=== PATIENT | female | born 1980 | race Caucasian/White ===

== ENCOUNTER 2022-01-30 09:42 | Outpatient (CLI) | payer OTHER, SELFPAY ==
--- NOTE | ~2022-01-30 | US_ITS ---
EXAMINATION: US abdomen limited DATE: 01/30/2022 10:40 INDICATION: Iron deficiency anemia due to chronic blood loss. TECHNIQUE: Multiple grayscale and Doppler ultrasound images of the abdomen were obtained. COMPARISON: None FINDINGS: The visualized portions of the head, body, and tail of the pancreas are normal. The liver i s normal without focal lesion. There is normal flow in main portal vein. The gallbladder is normal in size. No gallstones or gallbladder wall thickening. There was no sonographic Yang sign. The common duct is normal and measures 3 mm. IMPRESSION: 1. Normal right upper quadrant ultrasound. Reviewed, dictated and finalized at location B.
== END 2022-01-30 09:43 | disposition home or self-care (01) ==
PROVIDERS: PCP Emergency Medicine
DX: D50.0 Iron deficiency anemia secondary to blood loss (chronic) (principal); R10.11 Right upper quadrant pain
CPT/HCPCS: 76705

== ENCOUNTER 2023-07-27 09:23 | Emergency (ER) | payer OTHER, SELFPAY ==
[2023-07-27 09:31] VITALS: BP 111/60; PULSE 101; RESP 16; TEMP 37.2; O2SAT 100
--- NOTE | 2023-07-27 10:02 | ED.SKABFB ---
HPI - Skin/Abscess/Foreign Bdy General Chief complaint: Skin/Abscess/Foreign Body Stated complaint: Shingles Time Seen by Provider: 07/27/23 09:48 Source: patient, family (mother) and RN notes reviewed Mode of arrival: ambulatory Limitations: no limitations History of Present Illness HPI narrative: Patient presents today complaining of 3 blisters to her left lower abdomen/groin area that appeared 4 days ago. Patient was subsequently seen for this by her OBGYN who cultured the area, but believes it is likely shingles as patient is now experiencing pain in her buttocks as well. States the culture will come back on Saturday and the OB GYNs office will contact her with the results. Patient is currently pain-free. She comes in today to make sure there is not anything additional that she should be doing for the area while waiting for the culture results. Related Data Home Medications Medication Instructions Recorded Confirmed No Home Medications 07/27/23 07/27/23 Allergies Allergy/AdvReac Type Severity Reaction Status Date / Time No Known Allergies Allergy Verified 07/27/23 09:58 Review of Systems Review of Systems: CONSTITUTIONAL: Denies body aches, fever, chills, or sweats. EYES: Denies visual changes, redness, or discharge. ENT: Denies rhinorrhea, congestion, sore throat, or otalgia. CARDIOVASCULAR: Denies chest pain, palpitations, or edema. RESPIRATORY: Denies cough or dyspnea. GASTROINTESTINAL: Denies abdominal pain, nausea, vomiting, or diarrhea. GENITOURINARY: Denies dysuria or hematuria. SKIN: Denies rash, itching, or wounds. + blisters to lower abdomen MUSCULOSKELETAL: Denies back pain, joint pain, or myalgia. NEUROLOGIC: Denies headache, numbness, tingling, or weakness. PSYCH: Denies depression or anxiety. PMFSH Comments At time of signature, I have reviewed and agree with nursing past medical, surgical, social and family history unless otherwise noted. Please see nursing chart for further information. There is no relevant family history pertinent to the presenting complaint Exam Narrative: GENERAL: Well-appearing, well-nourished, and in no acute distress. HEAD: Normocephalic, atraumatic. EYES: EOMI. No redness or drainage. Conjunctivae normal. ENT: Mucous membranes pink and moist. NECK: Normal AROM. CHEST: No respiratory distress. EXTREMITIES: Normal range of motion. No edema. SKIN: Warm, dry, no rash. Capillary refill normal. Normal skin turgor. Three tiny vesicles to the left groin area with adjacent tender lymph node. No induration or drainage noted. NEURO: No focal deficits. Alert and oriented x3. Gait steady. PSYCH: Normal affect. No signs of depression or anxiety. Course Course Level of Care: Express Care Visit Vital Signs Vital signs: Vital Signs Temperature 98.9 F 07/27/23 09:31 Pulse Rate 101 H 07/27/23 09:31 Respiratory Rate 16 07/27/23 09:31 Blood Pressure 111/60 07/27/23 09:31 Pulse Oximetry 100 07/27/23 09:31 Temperature 98.9 F 07/27/23 09:31 Pulse Rate 101 H 07/27/23 09:31 Respiratory Rate 16 07/27/23 09:31 Blood Pressure 111/60 07/27/23 09:31 Pulse Oximetry 100 07/27/23 09:31 Reviewed MDM - Skin/Abscess/Foreign Bdy MDM Narrative Medical decision making narrative: Instructed patient to wait for her OB GYNs call regarding the results of the culture. At this time I advised her to leave the area alone as it did not look infected or in need of oral antibiotics. Agrees with plan. Anticipatory guidance given. Differential Diagnosis Differential diagnosis: Likely abscess of skin or subcutaneous tissue, herpes zoster and cellulitis Critical Care Time Critical Care Time Critical Care Time: No Discharge Plan Discharge Clinical Impression: Rash Patient Disposition: Home, Self-Care Condition: Stable Additional Instructions: Please wait for the results of your doctor's wound culture. She will treat you appropri
== END 2023-07-27 10:05 | disposition home or self-care (01) ==
PROVIDERS: Emergency Provider Nurse Practitioner; PCP Emergency Medicine
DX: R21 Rash and other nonspecific skin eruption (principal)
CPT/HCPCS: 99211; G0463

== ENCOUNTER 2024-02-27 17:15 | Emergency (ER) | payer OTHER, SELFPAY ==
[2024-02-27 17:16] VITALS: BP 115/77; PULSE 76; RESP 16; TEMP 36.6; O2SAT 100
--- NOTE | 2024-02-27 18:10 | ECG_ITS ---
Test Date: 2024-02-27 18:20:02 Measurements Intervals [place] Rate: 67 P: 75 SC: 146 QRS: 51 QRSD: 90 T: 43 QT: 354 QTc: 374 Interpretive Statements SINUS RHYTHM POSSIBLE LEFT ATRIAL ENLARGEMENT INCOMPLETE RIGHT BUNDLE BRANCH BLOCK BASELINE ARTIFACT- I, II, III, AVR, AVL, AVF BORDERLINE ECG No previous ECG available for comparison Electronically Signed On 02-27-2024 20:41:21 CDT by Hector Hernández D.O.
--- NOTE | 2024-02-27 18:17 | ED.GENADULT ---
HPI - General Adult General Chief complaint: Unspecified Stated complaint: shocked self on stove Time Seen by Provider: 02/27/24 18:09 History of Present Illness HPI narrative: 43-year-old female presenting emergency department for evaluation after shocking herself on a stove plug. Patient was plugging in a 3 pronged outlet for her oven when she received a shock lasting a second or 2. patient denies any tetany or being stuck to the logical sores. Patient states she had a shock 0 upper arm. Patient denies any loss of consciousness. Patient states this occurred by 30 minutes prior to arrival. Related Data Home Medications Medication Instructions Recorded Confirmed No Home Medications 07/27/23 07/27/23 Allergies Allergy/AdvReac Type Severity Reaction Status Date / Time No Known Allergies Allergy Verified 02/27/24 17:56 Review of Systems Review of Systems: All systems reviewed & are unremarkable except as noted in HPI and below Exam Narrative: APPEARANCE: Well appearing, no pain, no distress, well-nourished. HEAD: normocephalic, atraumatic. EYES: PERRLA/EOMI, conjunctivae clear. NOSE: Normal no drainage EARS:TMS clear with good light reflex. THROAT: Pharynx clear, no exudate. NECK: Supple. No adenopathy, no masses. RESPIRATORY: Airway patent, respirations nonlabored. Clear to auscultation bilaterally, no rales, rhonchi, wheezing. CARDIOVASCULAR: Regular rate and rhythm without murmurs rubs or gallops. ABDOMINAL: Soft, nontender, nondistended, normal bowel sounds MUSCULOSKELETAL: Moves all extremities. Strength/ROM intact, No edema, No calf tenderness. NEURO: Alert. Cranial nerves II through XII intact. Grossly intact SKIN: Warm, dry. Normal Color Course Vital Signs Vital signs: Vital Signs Temperature 97.9 F 02/27/24 17:16 Pulse Rate 76 02/27/24 17:16 Respiratory Rate 16 02/27/24 17:16 Blood Pressure 115/77 02/27/24 17:16 Pulse Oximetry 100 02/27/24 17:16 Oxygen Delivery Room Air 02/27/24 17:16 Temperature 98.7 F 02/27/24 19:01 Pulse Rate 77 02/27/24 19:01 Respiratory Rate 16 02/27/24 19:01 Blood Pressure 103/62 02/27/24 19:01 Pulse Oximetry 100 02/27/24 19:01 Oxygen Delivery Room Air 02/27/24 17:16 Medical Decision Making MDM Narrative Medical decision making narrative: 43-year-old female presented emergency department for evaluation after a brief electric shock from the stove flutter. Patient denies any chest pain shortness breath. EKG showed no acute abnormality. Patient was discharged home with instructions for close outpatient follow-up. Vital Signs Vital Signs: Vital Signs Temperature 97.9 F 02/27/24 17:16 Pulse Rate 76 02/27/24 17:16 Respiratory Rate 16 02/27/24 17:16 Blood Pressure 115/77 02/27/24 17:16 Pulse Oximetry 100 02/27/24 17:16 Oxygen Delivery Room Air 02/27/24 17:16 Temperature 98.7 F 02/27/24 19:01 Pulse Rate 77 02/27/24 19:01 Respiratory Rate 16 02/27/24 19:01 Blood Pressure 103/62 02/27/24 19:01 Pulse Oximetry 100 02/27/24 19:01 Oxygen Delivery Room Air 02/27/24 17:16 Discharge Plan Discharge Clinical Impression: Electric shock Patient Disposition: Home, Self-Care Condition: Stable Instructions: Antibiotic Form, Electrical Diaz in Adults (ED) Additional Instructions: Have close follow-up with your primary care physician. Prescriptions: No Action No Home Medications Follow-up/Referrals: Al Valdes MD [Primary Care Provider] -
[2024-02-27 19:01] VITALS: BP 103/62; PULSE 77; RESP 16; TEMP 37.1; O2SAT 100
== END 2024-02-27 19:03 | disposition home or self-care (01) ==
PROVIDERS: Emergency Provider Emergency Medicine; PCP Emergency Medicine
DX: T75.4XXA Electrocution, initial encounter (principal); W86.8XXA Exposure to other electric current, initial encounter; I45.10 Unspecified right bundle-branch block; R94.31 Abnormal electrocardiogram [ECG] [EKG]
CPT/HCPCS: 93005; 99283

== ENCOUNTER 2025-08-10 03:08 | Emergency (ER) | payer OTHER, SELFPAY ==
--- NOTE | ~2025-08-10 | CT_ITS ---
EXAMINATION: CTA chest PE abdomen pel DATE: 08/10/2025 05:16 INDICATION: Left-sided pleuritic chest pain. Left abdominal pain. TECHNIQUE: Computed tomography angiography (CTA) of the chest was performed with 100 mL Omnipaque-350 intravenous contrast timed to evaluate the pulmonary arteries. Coronal maximum intensity projection 3D-reconstructions were created by the technologist. Computed tomography (CT) of the abdomen and pelvis was performed with intravenous contrast. Automated exposure control and iterative reconstruction technique were employed. The dose-length product was 300.68 mGy-cm. COMPARISON: None. FINDINGS: CTA chest: There is mild scarring at the lung apices. There is mild dependent atelectasis bilaterally. No pleural effusion. The heart size is normal. No pericardial effusion. There is no pulmonary embolus. There is mild thoracic spondylosis. CT abdomen and pelvis: The liver, gallbladder, spleen, pancreas, adrenal glands, and kidneys are normal. There are multiple fibroids in the uterus measuring up to 5.1 cm. The appendix is not visualized. There are no pathologically enlarged lymph nodes. There is no free intraperitoneal fluid. There is mild lumbar spondylosis. IMPRESSION: 1. No pulmonary embolus. 2. Uterine fibroids. Reviewed, dictated and finalized at location E. OR LPN
[2025-08-10 03:23] VITALS: BP 106/76; PULSE 76; RESP 15; TEMP 36.7; O2SAT 100
--- NOTE | 2025-08-10 03:26 | ECG_ITS ---
Test Date: 2025-08-10 04:08:16 Measurements Intervals [place] Rate: 77 P: 71 IN: 136 QRS: 56 QRSD: 97 T: 38 QT: 342 QTc: 388 Interpretive Statements SINUS RHYTHM MINIMAL Q WAVES- DIFFUSE LEADS BASELINE ARTIFACT- II, III, AVR, AVL, AVF, V1-V6 BORDERLINE ECG Compared to ECG 02/27/2024 18:20:02 Incomplete right bundle-branch block no longer present Electronically Signed On 08-10-2025 07:12:08 SUPPLY COORDINATOR by Hector Hernández D.O.
--- OUTSIDE RECORDS SUMMARY | 2025-08-10 03:38 | XMS_ITS | Clinical Summary ---
Author Organization [facility] Address [address], [facility] [address] [place] [address] Phone Care Team Providers Care Fish Machine Feeder Name Role Phone Al Valdes Primary Care Provider [phone] Pancho Richards MD Unavailable [phone] Allergies No known active allergies Medications Multiple Vitamins-Minera ls (MULTIVITAL) Chewable Tablet Take by mouth. Active tranexamic Acid (LYSTEDA) 650 MG Tablet Take by mouth. Only with heavy menstrual cycles 8 Active Cholecalciferol (Vitamin D3) 2000 UNIT Capsule Take 1 Capsule by mouth daily. Active tretinoin (RETIN-A) 0.05 % Cream Apply. 12/25/19 26 Active Active Problems Problem Noted Date Diagnosed Date Iron deficiency anemia due to sideropenic dyspha robin 05/02/2018 Encounters Date Type Department Care Team Description 07/12/2025 2:00 PM MOLD CUTTING MACHINE OPERATOR Clinical Support [facility] [address] [id number] Iron deficiency anemia due to sideropenic dysphagia (Primary Dx) 07/12/2025 Travel 07/05/2025 2:00 PM MOLD CUTTING MACHINE OPERATOR Clinical Support [facility] [address] [phone] [facility] deficiency anemia due to sideropenic dysphagia (Primary Dx) 07/05/2025 Travel 06/28/2025 2:00 PM MOLD CUTTING MACHINE OPERATOR Clinical Support [facility] [address] [address] Nurse, [facility] [place] Iron deficiency anemia due to sideropenic dysphagia (Primary Dx) 06/25/2025 2:00 PM MOLD CUTTING MACHINE OPERATOR Clinical Support [facility] [address] [phone] Nurse, [facility] [place] Iron deficiency anemia due to sideropenic dysphagia (Primary Dx) 06/25/2025 Travel 06/21/2025 2:00 PM MOLD CUTTING MACHINE OPERATOR Clinical Support [facility] [address] [phone] Nurse, [facility] [place] Iron deficiency anemia due to sideropenic dysphagia (Primary Dx) 06/21/2025 Travel 06/09/2025 Results Follow-Up [facility] [address] [phone] Malinda Wolff, RN IRON AND TIBC [id number] [place], FERRITIN [id number] [place], CBC WITH AUTO DIFF [place] 06/08/2025 Telephone [facility] [address] [phone] Pancho Richards MD [facility] / Lab results 06/07/2025 1:00 PM CDT Lab [facility] [address] [phone] Lab, [facility] [place] Iron deficiency anemia due to sideropenic dysphagia 06/07/2025 Travel 06/03/2025 Telephone [facility] [address] [phone] Savannah Lazcano, RUNNING SPECIALIST, COUNTING MACHINE OPERATOR [facility] / Labs 05/12/2025 Telephone [facility] [address] [phone] Pancho Richards MD from Last 3 Months Immunizations Immunization Administration Dates Next Due Covid-19, Mrna, Lnp-s, Pf, 3 0 Mcg/0.3 Ml Dose (Nexidia) 06/23/2021,11/25/2020,10/31/2020 Family History Relation Name Status Comments Father Alive Mother Alive Social History Tobacco Use Types Packs/Day Years Used Date Smoking Tobacco: Never Smokeless Tobacco: Never Tobacco Cessation:Counseling Given: Not Answered Alcohol Use Standard Drinks/Week Comments No 0 (1 standard drink = 0.6 oz pur e alcohol) PHQ-2 Answer Date Recorded Total Score - Questions 1-9 0 02/2022 Sexually Active Control Partners Comments Yes Male Condom Comments Unknown Sex and Gender Information Value Date Recorded Sex Assigned at Not on file Legal Sex Female 8:44 AM CDT Gender Identity Not on file Sexual Orientation Not on file Last Filed Vital Signs Vital Sign Reading Time Taken Comments Blood Pressure 92/64 01/25/2025 10:45 AM CDT Pulse 79 01/25/2025 10:45 AM CDT Temperature 36.9 C (98.4 F) 01/25/2025 10:45 AM CDT Respiratory Rate 18 01/25/2025 10:45 AM CDT Oxygen Saturation 99% 01/25/2025 10:45 AM CDT Inhaled Oxygen Concentration - - Weight 39.5 kg (87 lb 1.6 oz) 01/25/2025 10:45 A M CDT Height 154.9 cm (5' 1) 01/25/2025 10:45 AM CDT Body Mass Index 16.46 01/25/2025 10:45 AM CDT Plan of Treatment Upcoming Encounters Date Type Department Care Team (Late st Contact Info) Description 09/06/2025 1:15 PM MOLD CUTTING MACHINE OPERATOR Lab [facility] [address] [phone] Lab, [facility] 09/06/2025 1:30 PM MOLD CUTTING MACHINE OPERATOR Office Visit [facility] [address] [phone] Pancho Richards MD [address] [place] [phone] Health Maintenance Due Date Last Done Comments Hepatitis C Virus (HCV) Screening 1980 TdaP Immunization 1980 Hepatitis B Immunization (1 of 3 - 19+ 3-dose series) 1999 HPV/Cotest 2010 Influenza Immunization (#1) 2025 SARS-COV-2 Immunization ( season) 2025 06/23/2021, 11/25/2020, 10/31/2020 Cologuard 2025 Colonoscopy 2025 Colorectal Cancer Screening 2025 Immunochemical Fecal Occult Blood 2025 Mammogram 02/03/2026 02/03/2025, 01/17, 01/31/2023, Additional history exists Cervical Cancer Screening (CCS) 02/10/2027 Pap Smear 02/10/2027 02/11/2024, 07/10/2021 Respiratory Syncytial Virus (RSV) Immunization (Adult) (1 - 1-dose 75+ series) 2055 Discussion re Starting/Frequency of Mammograms Completed 02/03/2025, 02/03/2024, 01/31/2023, Additional history exists Human Papillomavirus (HPV) Immunization (No Doses Required) Completed Meningococcal Immunization (ACWY) Aged Out No longer eligible based on patient's age to complete this topic Pneumococcal Immunization Combined Aged Out No longer eligible based on patient's age to complete this topic Rotavirus Immunization Aged Out No lo nger eligible based on patient's age to complete this topic Procedures Procedure Name Priority Date/Time Associated Diagnosis Comments CBC WITH AUTO DIFF [place] Routine 06/07/2025 1:06 PM CDT FERRITIN [id number] [place] Routine 06/07/2025 1: 06 PM CDT IRON AND TIBC [id number] [place] Routine 06/07/2025 1:06 PM CDT from Last 3 Months Results * (ABNORMAL) IRON AND TIBC [id number] [place] (06/07/2025 1:06 PM CDT) Iron Bind.Cap.(TIBC) 377 250 - 450 UG/DL [facility] UIBC 351 131 - 425 UG/DL [facility] Iron, Serum 26(L) 27 - 159 UG/DL [facility] Iron Saturation 7(LL) 15 - 55 % [facility] 06/07/2025 1:06 PM CDT Merged With [facility] - 06/08/2025 7:08 AM CDT TESTING PERFORMED AT: [] [facility], [address] [place] [address], [phone], PHONE: [phone], SYSTEM TECHNOLOGIST: FARHAT STAHL, PHD us Pancho Richards MD LAB SEND OUTS Final Resul t Performing Organization Address [facility] Co de Phone Number [facility] [place] [address], [place] [phone] * (ABNORMAL) FERRITIN [id number] [place] (06/07/2025 1:06 PM CDT) Ferritin, Serum 5(L) 15 - 150 NG/ML [facility] 06/07/2025 1:06 PM CDT Merged With [facility] - 06/08/2025 7:08 AM CDT TESTING PERFORMED AT: [] [facility], [address] [place] [address], [phone], PHONE: [phone], SYSTEM TECHNOLOGIST: FARHAT STAHL, PHD us Pancho Richards MD LAB SEND OUTS Final Resul t Performing Organization Address [facility] Co de Phone Number [facility] [place] [address], [place] [phone] * (ABNORMAL) CBC WITH AUTO DIFF [place] (06/07/2025 1:06 PM CDT) WBC 5.5 4.0 - 10.0 10*3/uL [facility] HGB 10.6(L) 11.2 - 15.7 g/dL [facility] HCT 35.1 34.1 - 44.9 % [facility] PLT 231 163 - 369 10*3/uL [facility] MPV 9.7 9.4 - 12.4 fL [facility] RBC 4.73 3.93 - 5.22 10*6/uL [facility] MCV 74(L) 79 - 95 fL [facility] MCH 22.4(L) 25.6 - 32.2 pg [facility] MCHC 30.2(L) 32.2 - 36.5 g/dL [facility] RDW 14.2 11.6 - 14.4 % [facility] Neutrophils % 63.4 36.0 - 66.0 % [facility] Lymphocytes % 24.3 19.0 - 40.0 % [facility] Monocytes % 6.0 4.1 - 12.1 % [facility] Eosinophils % 5.6(H) 0.0 - 3.5 % [facility] Basophils % 0.5 0.0 - 1.0 % [facility] Absolute Neutrophils 3.5 1.4 - 6.6 10*3/uL [facility] Absolute Lymphocytes 1.3 0.8 - 4.0 10*3/uL [facility] Absolute Monocytes 0.3 0.2 - 1.2 10*3/uL [facility] Absolute Eosinophils 0.3 0.0 - 0.4 10*3/uL [facility] Absolute Basophils 0.0 0.0 - 0.1 10*3/uL [facility] 06/07/2025 1:06 PM CDT us Pancho Richards MD LAB SEND OUTS Final Resul t [facility] [place] [address], from Last 3 Months Insurance MEDICAID [facility] PLAN Care Teams Fish Machine Feeder Relationship Specialty Start Date End Date Al Valdes [address] [facility] [place] [address] PCP - General Family Medicine 04/17/18 Pancho Richards MD [address] [place] [phone] Consulting Physician Hematology and Oncology 02/14/21
--- OUTSIDE RECORDS SUMMARY | 2025-08-10 03:38 | XMS_ITS | Encounter Summary ---
Author Organization [facility] Address [address] [place] [address] Care Team Providers Care Donor Specialist Name Role Phone Al Valdes MD Primary Care Provider Reason for Visit * Reason Onset Date Comments Question 02/04/2024 Results 02/04/2024 Encounter Details Date Type Department Care Team (Late st Contact Info) Description 02/04/2024 Telephone [facility] - RATE SUPERVISOR [address] [facility] [address] [place] [address] Yuli Sweeney MD [address] [place] [address] Question; Results Social History Tobacco Use Types Packs/Day Years Used Date Smoking Tobacco: Never Smokeless Tobacco: Never Alcohol Use Standard Drinks/Week Comments No 0 (1 standard drink = 0.6 oz pur e alcohol) PHQ-2 Answer Date Recorded PHQ2 TOTAL SCORE 0 02/28/2023 Comments No Sex and Gender Information Value Date Recorded Sex Assigned at Not on file Legal Sex Female 12:42 PM CDT Gender Identity Not on file Sexual Orientation Not on file documented as of this encounter Functional Status * Is person deaf or have serious hearing difficulty? Answer Date of Assessment Author No 02/09/2022 1:32 PM ELIZABETHT Roger Harper RN * Is person blind or have serious difficulty seeing? Answer Date of Assessment Author No 02/09/2022 1:32 PM ELIZABETHT Roger Harper RN * Does person have serious difficulty walking/climbing stairs? Answer Date of Assessment Author No 02/09/2022 1:32 PM CDT Roger Harper RN * Does person have difficulty dressing/bathing? Answer Date of Assessment Author No 02/09/2022 1:32 PM CDT Roegr Harper RN * Does person have difficulty doing errands alone? Answer Date of Assessment Author No 02/09/2022 1:32 PM CDT Roger Harper RN documented as of this encounter Mental Status * Does person have difficulty concentrating/remembering/making decisions? Answer Entry Date Author No 02/09/2022 1:32 PM CDT Roger Harper RN documented in this encounter Miscellaneous Notes * Telephone Encounter - Yuli Sweeney MD - 02/04/2024 3:54 PM CDT Agree with proceeding * Telephone Encounter - Sugey Acevedo RN - 02/04/2024 2:37 PM CDT RN called pt. Pt had blood type and CBC yesterday. Pt calling for results. RN reviewed. Pt asking if still ok to move forward with procedure. RN made pt aware should be fine with this blood work. RN will also send to Dr. Garcia to look over as well. Pt said if has any concerns can always send her a MyChart * Telephone Encounter - Angella Ureña - 02/04/2024 2:03 PM CDT Pt called in stating that she have questions about her pre-testing results. documented in this encounter Plan of Treatment Upcoming Encounters Date Type Department Care Team (Late st Contact Info) Description 04/01/2026 3:15 PM CDT Procedure visit [facility] - RATE SUPERVISOR [address] [facility] [address] [place] [phone] Yasmin Pickett MD [address] [place] [phone] 04/07/2026 11:30 AM CDT Office Visit [facility] - RATE SUPERVISOR [address] [place] [address] [address] [place] [phone] Yasmin Pickett MD [address] [place] [phone] 07/28/2026 1:00 PM BLANKET MAKER Office Visit [facility] - [place] [address] , [facility] [address] [place] [address] Savannah Galarza, LINUX SECURITY ADMINISTRATOR-[facility] [address] [place] [address] documented as of this encounter Visit Diagnoses Not on filedocumented in this encounter Care Teams Donor Specialist Relationship Specialty Start Date End Date Al Valdes MD [address] [facility] [address] [facility] [address] [place] [address] PCP - General 04/16/18 documented as of this encounter
--- OUTSIDE RECORDS SUMMARY | 2025-08-10 03:38 | XMS_ITS | Encounter Summary ---
Author Organization [facility] Address [address] [place] [address] Care Team Providers Care Players Club Representative Name Role Phone Al Valdes MD Primary Care Provider [phone] Encounter Details Date Type Department Care Team (Late st Contact Info) Description 06/14/2025 Results Follow-Up [facility] [place] [address], [facility] [address] [place] [address] eRi-Savannah Toledo, AIR QUALITY ENGINEER-BOTTOM TURNING LATHE TURNER [address] [place] [address] Social History Tobacco Use Types Packs/Day Years Used Date Smoking Tobacco: Never Smokeless Tobacco: Never Alcohol Use Standard Drinks/Week Comments No 0 (1 standard drink = 0.6 oz pur e alcohol) AUDIT-C Answer Date Recorded Q1: How often do you have a drink containing alcohol? Never 02/11/2024 Q2: How many drinks containi ng alcohol do you have on a typical day when you are drinking? Patient does not drink Q3: How often do you have si x or more drinks on one occasion? Never 02/11/2024 PHQ-2 Answer Date Recorded PHQ2 TOTAL SCORE [...] 1:32 PM CDT Roger Harper RN * Is person blind [...] of Assessment Author No 02/09/2022 1:32 PM Roger Muniz RN documented as of this encounter Mental Status * Does person have difficulty concentrating/remembering/making decisions? Answer Entry Date Author No 02/09/2022 1:32 PM Roger Muniz RN documented in this encounter Plan of Treatment Upcoming Encounters Date Type Department Care Team (Late st Contact Info) Description 04/01/2026 3:15 PM CDT Procedure visit [facility] - LOAN OFFICER ASSISTANT [address] [place] [phone] Yasmin Pickett MD [address] [place] [phone] 04/07/2026 11:30 AM CDT Office Visit [facility] - LOAN OFFICER ASSISTANT [address] [place] [address] [phone] Yasmin Pickett MD [address] [place] [phone] 07/28/2026 1:00 PM CHAIR CAR DRIVER Office Visit [facility] - [place] [address], [facility] [address] [place] [phone] Savannah Galarza, AIR QUALITY ENGINEER-BOTTOM TURNING LATHE TURNER [address] [place] [phone] documented as of this encounter Visit Diagnoses Not on filedocumented in this encounter Care Teams Players Club Representative Relationship Specialty Start Date End Date Al Valdes MD [address] [facility] [address] [facility] [address] [place] [address] PCP - General 04/16/18 documented as of this encounter
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
--- OUTSIDE RECORDS SUMMARY | 2025-08-10 03:38 | XMS_ITS | Clinical Summary ---
Author Organization [facility] Address [address] [place] [address] Care Team Providers Care Tool Grinder Name Role Phone Al Valdes MD Primary Care Provider Yasmin Pickett MD Unavailable Allergies No known active allergies Medications VIRTUSSIN AC 10-100 mg/5 mL liquid 0 8 Active tretinoin (RETIN-A) 0.025 % creamIndications: Encounter for cosmetic surgery Apply topically nightly 45 g 3 4 Active tretinoin microspheres 0.08 % gel with pump Apply to AA on face QHS 60 g 11 4 Active tretinoin (RETIN-A) 0.05 % cream Apply topically nightly AA face QHS 30 g 2 5 12/25/19 26 Active tretinoin microspheres 0.08 % gel with pumpIndications:R etinoid dermatitis Apply to aa on face QHS 50 g 11 5 Active Active Problems Problem Noted Date Diagnosed Date Irritation of right eye 06/17/2025 Squamous blepharitis of right upper eyelid 06/17 Assessment & Plan (06/17/2025 4:20 PM CDT): Pt ed Rec gentle lid wipes and warm compress, can add sm amt of baby shampoo ATs BID+ Surgical follow-up care 03/12/2017 Skin neoplasm 03/05/2017 Encounters Date Type Department Care Team Description 06/17/2025 1:00 PM CDT Office Visit [facility] [address] [facility] 6th Floor, [address] [place] [phone] Pasha Elishaalmas Lockwood, OD Squamous blepharitis of right upper eyelid (Primary Dx); Irritation of right eye 06/03/2025 12:15 PM CDT Office Visit [facility] [address] [facility] [address] [place] [phone] Sara Mars MD Acrochordon (Primary Dx) from Last 3 Months Surgical History Surgery Date Site/Laterality Comments SKIN BIOPSY Medical History Medical History Date Comments Skin neoplasm 12/2017 Anemia Family History Medical History Relation Name Comments Breast cancer Maternal Grandmother Relation Name Status Comments Maternal Grandmother Social History Tobacco Use Types Packs/Day Years Used Date Smoking Tobacco: Never Smokeless Tobacco: Never Alcohol Use Standard Drinks/Week Comments No 0 (1 standard drink = 0.6 oz pur e alcohol) AUDIT-C Answer Date Recorded Q1: How often do you have a drink containing alcohol? Never 01/16/2023 Q2: How many drinks containi ng alcohol do you have on a typical day when you are drinking? Patient does not drink Q3: How often do you have si x or more drinks on one occasion? 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 Not on file Not on file Not on file Obstetrics History Para Term AB IAB SAB Ectopic Multiple Livin g Live Births 0 0 0 0 0 0 0 0 0 0 0 Last Filed Vital Signs Vital Sign Reading Time Taken Comments Blood Pressure 110/70 02/24/2018 2:46 PM CDT Pulse - - Temperature - - Respiratory Rate - - Oxygen Saturation - - Inhaled Oxygen Concentration - - Weight 39.5 kg (87 lb) 02/03/2025 1:09 PM CDT Height 154.9 cm (5' 1) 02/03/2025 1:09 PM CDT Body Mass Index 16.44 02/03/2025 1:09 PM CDT Plan of Treatment Health Maintenance Due Date Last Done Comments Colon Cancer Screening-Colonoscopy 1980 Depression Screening 1980 Hepatitis C Screening 1980 DTaP/Tdap/Td Vaccine (1 - Tdap) 1991 Varicella Vaccines (1 of 2 - 13+ 2-dose series) 1993 Hepatitis B Screening 1998 HPV Vaccines (1 - 3-dose SCDM series) 2007 Regular Well Visit/Exam 18-64 02/24/2019 02/24/2018 Cervical Cancer Screening 02/10/2025 02/11/2024 Covid-19 Vaccine ( season) 2025 06/23/2021, 11/25/2020, 10/31/2020 Influenza Vaccine (#1) 2025 Breast Cancer Screening-Mammogram 02/03/2026 02/03/2025, 02/03/2024, 01/31/2023, Additional history exists Pneumococcal vaccine <65 Aged Out No longer eligible based on patient's age to complete this topic Procedures Procedure Name Priority Date/Time Associated Diagnosis Comments SCREENING MAMMOGRAM BILATERAL W CHESTER Schedule Routine, Read Routine (OP Routine) 02/03/2025 1:20 PM CDT Screening mammogram, encounter for from Last 3 Months or Most Recently Relevant to Health Maintenance Results * Screening Mammogram Bilateral W [place] (02/03/2025 1:20 PM CDT) Anatomical Region Laterality Modality Breast Bilateral Mammography Impressions 02/04/2025 7:14 AM CDT Bilateral No evidence of malignancy in either breast. OVERALL BI-RADS FINAL ASSESSMENT: 1 - Negative RECOMMENDATION: Recommend bilateral annual screening mammography. Narrative 02/04/2025 7:14 AM CDT EXAMINATION: Screening Mammogram Bilateral W Chester: 02/03/2025 COMPARISON: Relevant prior studies available at the time of interpretation were reviewed. TECHNIQUE: Mammography was performed with 2D and digital breast tomosynthesis (DBT) images. CAD was utilized. BREAST PARENCHYMAL COMPOSITION: The breasts are extremely dense, which lowers the sensitivity of mammography. FINDINGS: Bilateral There is no suspicious mass, calcification, or architectural distortion in either breast. us Self Screening Mammogram IMG MAMMO PROCEDURES Fi nal Result from Last 3 Months or Most Recently Relevant to Health Maintenance Insurance [facility] MEDICAID [facility] Care Teams Tool Grinder Relationship Specialty Start Date End Date Al Valdes MD [address] [place] [address] PCP - General Family Medicine 01/27/21 [place] [address] [place] [address] [address] Referring Physician Obstetrics and Gynecology 02/03/25
[2025-08-10 04:33] LABS: BEDSIDEPREGUCG Negative (Negative)
[2025-08-10 04:40] LABS: Add Urine Microscopic? YES; Appearance Urine Clear (Clear); Glucose Urine UA Negative (Negative); Leukocyte Esterase Ur Negative LEU/UL (Negative); Nitrate Urine Negative (Negative); Non Pathogenic Casts 0-2; Specific Grav Ur 1.003 (1.001-1.035)
[2025-08-10 04:50] LABS: Alanine Aminotransferase 12 U/L (6-35); Albumin Level 4.5 g/dL (3.5-5.1); Alkaline Phosphatase 55 U/L (38-126); Anion Gap 9 mmol/L (4-12); Aspartate Amino Transferase 23 U/L (14-36); Bilirubin,Total 0.3 mg/dL (0.2-1.3); Blood Urea Nitrogen 14 mg/dL (7-17); Calcium 9.3 mg/dL (8.4-10.2); Carbon Dioxide 25 mmol/L (22-30); Chloride 105 mmol/L (98-107); Estimated CRCL calculation 62 ml/min; Estimated Glomerular Filt Rate > 60; Glucose 100 mg/dL (65-110); Lipase 47 U/L (23-300); Magnesium 2.1 mg/dL (1.6-2.3); Potassium 3.8 mmol/L (3.4-5.0); Sodium 139 mmol/L (137-145); Total Protein 7.5 g/dL (6.3-8.2)
[2025-08-10 04:59] LABS: NT Pro B Type Natriuretic Pept 100 pg/mL (19.9-100); Troponin I < 0.012 ng/mL (0.000-0.034)
[2025-08-10 05:11] LABS: Influenza A QL RT-PCR Negative (Negative); Influenza B QL RT-PCR Negative (Negative); RSV RNA, RT-PCR Negative (Negative); SARS-CoV-2 RNA PCR Negative (Negative)
[2025-08-10 05:33] LABS: Hematocrit 38.4 % (37.0-47.0); Hemoglobin 12.4 g/dL (12.0-15.0); Immature Granulocyte Percent A 0.3 % (0-0.5); Lymphocytes Absolute Auto 0.85 K/mm3 (0.9-3.2); Mean Corpuscular HGB Conc 32.3 g/dl (32-36); Mean Corpuscular Hemoglobin 25.4 pg (26-34); Mean Corpuscular Volume 78.5 fl (80-100); Nucleated Red Blood Cells Absolute Auto 0.000 K/mm3 (0.0-0.012); Nucleated Red Blood Cells Perc 0.0 % (0.0-0.2); Platelet Count Result 203 k/mm3 (150-375); Red Blood Count 4.89 M/mm3 (4.2-5.4); White Blood Count 6.2 K/mm3 (4.5-10.0)
--- NOTE | 2025-08-10 06:41 | ED_ITS ---
HPI - General Adult General Chief complaint: Abdominal Pain <Slava Sibley MD - Last Filed: 08/10/25 06:42> Stated complaint: LUQ ABD PAIN RADIATING TO BACK <Slava Sibley MD - Last Filed: 08/10/25 06:42> Time Seen by Provider: 08/10/25 03:21 <Slaav Sibley MD - Last Filed: 08/10/25 06:42> History of Present Illness HPI narrative: Patient for 45-year-old female presents emergency department chief complaint of left upper quadrant/low chest pain patient reports that around 2:00 a.m. she started having pain in the left lower portion of her chest/left upper abdomen patient states the pain radiated to her back reports was worse with inspiration the patient reports she was concerned that she may have a blood clot in her lungs <Slava Sibley MD - Last Filed: 08/10/25 06:42> Patient for 45-year-old female presents to the emergency department chief complaint of left upper quadrant/low chest pain patient reports that around 2:00 a.m. she started having pain in the left lower portion of her chest/left upper abdomen patient states the pain radiated to her back reports was worse with inspiration the patient reports she was concerned that she may have a blood clot in her lungs <Jason Wesley MD - Last Filed: 08/10/25 13:50> Related Data Allergies/adverse reactions: Allergies Allergy/AdvReac Type Severity Reaction Status Date / Time No Known Allergies Allergy Verified 02/27/24 17:56 <Slava Sibley MD - Last Filed: 08/10/25 06:42> Review of Systems 2 Review of Systems: A 10 system review of systems was completed on the patient and is negative except for what is stated in the HPI. Nursing and ancillary documentation was reviewed. <Slava Sibley MD - Last Filed: 08/10/25 06:42> Exam 2 Narrative: GENERAL: Well-appearing, well-nourished, and in no acute distress. HEAD: Normocephalic, atraumatic. EYES: PERRLA and EOMI. ENT: Nares clear, no rhinorrhea or epistaxis. Mucous membranes moist. NECK: Supple. CHEST: Clear to auscultation. No respiratory distress. HEART: Regular rate and rhythm. No murmur heard. Normal peripheral pulses. ABDOMEN: Soft, nontender, nondistended, normal active bowel sounds. EXTREMITIES: Normal range of motion. No edema. SKIN: Warm, dry, no rash. NEURO: No focal deficits. Alert and oriented x3. PSYCH: Normal mood and affect. <Slava Sibley MD - Last Filed: 08/10/25 06:42> Course Vital Signs Vital signs: Vital Signs Temperature 98.0 F 08/10/25 03:23 Pulse Rate 76 08/10/25 03:23 Respiratory Rate 15 08/10/25 03:23 Blood Pressure 106/76 08/10/25 03:23 Pulse Oximetry 100 08/10/25 03:23 Oxygen Delivery Room Air 08/10/25 03:23 Temperature 98.0 F 08/10/25 03:23 Pulse Rate 80 08/10/25 08:08 Respiratory Rate 17 08/10/25 08:08 Blood Pressure 117/73 08/10/25 08:08 Pulse Oximetry 98 08/10/25 08:08 Oxygen Delivery Room Air 08/10/25 03:23 <Slava Sibley MD - Last Filed: 08/10/25 06:42> Vital Signs Temperature 98.0 F 08/10/25 03:23 Pulse Rate 76 08/10/25 03:23 Respiratory Rate 15 08/10/25 03:23 Blood Pressure 106/76 08/10/25 03:23 Pulse Oximetry 100 08/10/25 03:23 Oxygen Delivery Room Air 08/10/25 03:23 Temperature 98.0 F 08/10/25 03:23 Pulse Rate 80 08/10/25 08:08 Respiratory Rate 17 08/10/25 08:08 Blood Pressure 117/73 08/10/25 08:08 Pulse Oximetry 98 08/10/25 08:08 Oxygen Delivery Room Air 08/10/25 03:23 <Jason Wesley MD - Last Filed: 08/10/25 13:50> [facility] MDM Narrative Medical decision making narrative: 45-year-old female presenting to the emergency department for evaluation for upper abdominal pain. Patient was also complaining chest pain as well. Patient was afebrile with leukocytosis and hemoglobin of 12.4. Chemistries were negative. Patient had negative serial troponins, lactic acid was negative. ProBNP was not elevated. Lipase was negative. UA was negative for infection. Patient was negative for influenza RSV and for COVID. CTA chest abdomen pelvis was ordered and this was negative. no evidence of acute cholecystitis, colitis, diverticulitis, pulmonary embolism, ACS, pneumonia. <Jason Wesley MD - Last Filed: 08/10/25 13:50> Differential Diagnosis Differential Diagnosis: ACS, pulmonary embolism, pneumonia, pneumothorax, UTI, colitis, diverticulitis, ureteral calculi <Jason Wesley MD - Last Filed: 08/10/25 13:50> Lab Data MDM Lab Attestation statement: I personally reviewed the patient's lab results. <Jason Wesley MD - Last Filed: 08/10/25 13:50> Result diagrams: 08/10/25 05:27 08/10/25 04:29 <Slava Sibley MD - Last Filed: 08/10/25 06:42> Labs: Lab Results 08/10/25 08/10/25 08/10/25 Range/Units 04:29 04:31 05:27 WBC 6.2 (4.5-10.0) K/mm3 RBC 4.89 (4.2-5.4) M/mm3 Hgb 12.4 (12.0-15.0) g/dL Hct 38.4 (37.0-47.0) % MCV 78.5 L (80-100) fl MCH 25.4 L (26-34) pg MCHC 32.3 (32-36) g/dl RDW 21.5 H (11.5-14.5) % Plt Count 203 (150-375) k/mm3 MPV 9.4 (7.4-10.4) fl Immature Gran % (Auto) 0.3 (0-0.5) % Neut % (Auto) 77.5 H (45.5-73.1) % Lymph % (Auto) 13.7 L (18.3-44.2) % Graham % (Auto) 5.9 (2.6-8.5) % Eos % (Auto) 2.1 (0-4.4) % Baso % (Auto) 0.5 (0.2-1.2) % Lymph # (Auto) 0.85 L (0.9-3.2) K/mm3 Graham # (Auto) 0.4 (0.1-0.6) K/mm3 Eos # (Auto) 0.1 (0-0.3) K/mm3 Baso # (Auto) 0.0 (0.0-0.1) K/mm3 Abs Immat Gran (auto) 0.02 (0.00-0.031) K/mm3 Absolute Neuts (auto) 4.8 (1.3-6.7) K/mm3 Absolute Nucleated RBC 0.000 (0.0-0.012) K/mm3 Nucleated RBC % 0.0 (0.0-0.2) % Sodium 139 (137-145) mmol/L Potassium 3.8 (3.4-5.0) mmol/L Chloride 105 (98-107) mmol/L Carbon Dioxide 25 (22-30) mmol/L Anion Gap 9 (4-12) mmol/L BUN 14 (7-17) mg/dL Creatinine 0.62 L (0.7-1.0) mg/dL Estim Creat Clear Calc 62 ml/min Estimated GFR > 60 (59 - ) Glucose 100 (65-110) mg/dL Lactic Acid 0.8 (0.7-2.0) mmol/L Calcium 9.3 (8.4-10.2) mg/dL Magnesium 2.1 (1.6-2.3) mg/dL Total Bilirubin 0.3 (0.2-1.3) mg/dL AST 23 (14-36) U/L ALT 12 (6-35) U/L Alkaline Phosphatase 55 (38-126) U/L Troponin I < 0.012 (0.000-0.034) ng/mL NT-Pro-B Natriuret Pep 100 (19.9-100) pg/mL Total Protein 7.5 (6.3-8.2) g/dL Albumin 4.5 (3.5-5.1) g/dL Lipase 47 (23-300) U/L Urine Color Yellow (Yellow) Urine Appearance Clear (Clear) Urine pH 6.5 (5.0-9.0) Ur Specific Schlater 1.003 (1.001-1.035) Urine Protein Negative (Negative) mg/dL Urine Glucose (UA) Negative (Negative) mg/dL Urine Ketones Negative (Negative) mg/dL Ur Blood (Man) 2+ H (Negative) Urine Nitrate Negative (Negative) Urine Bilirubin Negative (Negative) Urine Urobilinogen 0.2 (<2.0) mg/dL Leukocyte Esterase Rfl Negative (Negative) TAL/UL Urine RBC 0-2 (0-2) /hpf Urine WBC 0-5 (0-3) /hpf Ur Squamous Epith Cells None seen (Few) /hpf Urine Bacteria None seen /hpf Urine Casts 0-2 POC Urine HCG, Qual Negative (Negative) Influenza A (RT-PCR) Negative (Negative) Influenza B (RT-PCR) Negative (Negative) RSV (RT-PCR) Negative (Negative) SARS-CoV-2 RNA (RT-PCR) Negative (Negative) 08/10/25 Range/Units 06:43 WBC (4.5-10.0) K/mm3 RBC (4.2-5.4) M/mm3 Hgb (12.0-15.0) g/dL Hct (37.0-47.0) % MCV (80-100) fl MCH (26-34) pg MCHC (32-36) g/dl RDW (11.5-14.5) % Plt Count (150-375) k/mm3 MPV (7.4-10.4) fl Immature Gran % (Auto) (0-0.5) % Neut % (Auto) (45.5-73.1) % Lymph % (Auto) (18.3-44.2) % Graham % (Auto) (2.6-8.5) % Eos % (Auto) (0-4.4) % Baso % (Auto) (0.2-1.2) % Lymph # (Auto) (0.9-3.2) K/mm3 Graham # (Auto) (0.1-0.6) K/mm3 Eos # (Auto) (0-0.3) K/mm3 Baso # (Auto) (0.0-0.1) K/mm3 Abs Immat Gran (auto) (0.00-0.031) K/mm3 Absolute Neuts (auto) (1.3-6.7) K/mm3 Absolute Nucleated RBC (0.0-0.012) K/mm3 Nucleated RBC % (0.0-0.2) % Sodium (137-145) mmol/L Potassium (3.4-5.0) mmol/L Chloride (98-107) mmol/L Carbon Dioxide (22-30) mmol/L Anion Gap (4-12) mmol/L BUN (7-17) mg/dL Creatinine (0.7-1.0) mg/dL Estim Creat Clear Calc ml/min Estimated GFR (59 - ) Glucose (65-110) mg/dL Lactic Acid (0.7-2.0) mmol/L Calcium (8.4-10.2) mg/dL Magnesium (1.6-2.3) mg/dL Total Bilirubin (0.2-1.3) mg/dL AST (14-36) U/L ALT (6-35) U/L Alkaline Phosphatase (38-126) U/L Troponin I < 0.012 (0.000-0.034) ng/mL NT-Pro-B Natriuret Pep (19.9-100) pg/mL Total Protein (6.3-8.2) g/dL Albumin (3.5-5.1) g/dL Lipase (23-300) U/L Urine Color (Yellow) Urine Appearance (Clear) Urine pH (5.0-9.0) Ur Specific Schlater (1.001-1.035) Urine Protein (Negative) mg/dL Urine Glucose (UA) (Negative) mg/dL Urine Ketones (Negative) mg/dL Ur Blood (Man) (Negative) Urine Nitrate (Negative) Urine Bilirubin (Negative) Urine Urobilinogen (<2.0) mg/dL Leukocyte Esterase Rfl (Negative) TAL/UL Urine RBC (0-2) /hpf Urine WBC (0-3) /hpf Ur Squamous Epith Cells (Few) /hpf Urine Bacteria /hpf Urine Casts POC Urine HCG, Qual (Negative) Influenza A (RT-PCR) (Negative) Influenza B (RT-PCR) (Negative) RSV (RT-PCR) (Negative) SARS-CoV-2 RNA (RT-PCR) (Negative) <Slava Sibley MD - Last Filed: 08/10/25 06:42> Lab Results 08/10/25 08/10/25 08/10/25 Range/Units 04:29 04:31 05:27 WBC 6.2 (4.5-10.0) K/mm3 RBC 4.89 (4.2-5.4) M/mm3 Hgb 12.4 (12.0-15.0) g/dL Hct 38.4 (37.0-47.0) % MCV 78.5 L (80-100) fl MCH 25.4 L (26-34) pg MCHC 32.3 (32-36) g/dl RDW 21.5 H (11.5-14.5) % Plt Count 203 (150-375) k/mm3 MPV 9.4 (7.4-10.4) fl Immature Gran % (Auto) 0.3 (0-0.5) % Neut % (Auto) 77.5 H (45.5-73.1) % Lymph % (Auto) 13.7 L (18.3-44.2) % Graham % (Auto) 5.9 (2.6-8.5) % Eos % (Auto) 2.1 (0-4.4) % Baso % (Auto) 0.5 (0.2-1.2) % Lymph # (Auto) 0.85 L (0.9-3.2) K/mm3 Graham # (Auto) 0.4 (0.1-0.6) K/mm3 Eos # (Auto) 0.1 (0-0.3) K/mm3 Baso # (Auto) 0.0 (0.0-0.1) K/mm3 Abs Immat Gran (auto) 0.02 (0.00-0.031) K/mm3 Absolute Neuts (auto) 4.8 (1.3-6.7) K/mm3 Absolute Nucleated RBC 0.000 (0.0-0.012) K/mm3 Nucleated RBC % 0.0 (0.0-0.2) % Sodium 139 (137-145) mmol/L Potassium 3.8 (3.4-5.0) mmol/L Chloride 105 (98-107) mmol/L Carbon Dioxide 25 (22-30) mmol/L Anion Gap 9 (4-12) mmol/L BUN 14 (7-17) mg/dL Creatinine 0.62 L (0.7-1.0) mg/dL Estim Creat Clear Calc 62 ml/min Estimated GFR > 60 (59 - ) Glucose 100 (65-110) mg/dL Lactic Acid 0.8 (0.7-2.0) mmol/L Calcium 9.3 (8.4-10.2) mg/dL Magnesium 2.1 (1.6-2.3) mg/dL Total Bilirubin 0.3 (0.2-1.3) mg/dL AST 23 (14-36) U/L ALT 12 (6-35) U/L Alkaline Phosphatase 55 (38-126) U/L Troponin I < 0.012 (0.000-0.034) ng/mL NT-Pro-B Natriuret Pep 100 (19.9-100) pg/mL Total Protein 7.5 (6.3-8.2) g/dL Albumin 4.5 (3.5-5.1) g/dL Lipase 47 (23-300) U/L Urine Color Yellow (Yellow) Urine Appearance Clear (Clear) Urine pH 6.5 (5.0-9.0) Ur Specific Schlater 1.003 (1.001-1.035) Urine Protein Negative (Negative) mg/dL Urine Glucose (UA) Negative (Negative) mg/dL Urine Ketones Negative (Negative) mg/dL Ur Blood (Man) 2+ H (Negative) Urine Nitrate Negative (Negative) Urine Bilirubin Negative (Negative) Urine Urobilinogen 0.2 (<2.0) mg/dL Leukocyte Esterase Rfl Negative (Negative) TAL/UL Urine RBC 0-2 (0-2) /hpf Urine WBC 0-5 (0-3) /hpf Ur Squamous Epith Cells None seen (Few) /hpf Urine Bacteria None seen /hpf Urine Casts 0-2 POC Urine HCG, Qual Negative (Negative) Influenza A (RT-PCR) Negative (Negative) Influenza B (RT-PCR) Negative (Negative) RSV (RT-PCR) Negative (Negative) SARS-CoV-2 RNA (RT-PCR) Negative (Negative) 08/10/25 Range/Units 06:43 WBC (4.5-10.0) K/mm3 RBC (4.2-5.4) M/mm3 Hgb (12.0-15.0) g/dL Hct (37.0-47.0) % MCV (80-100) fl MCH (26-34) pg MCHC (32-36) g/dl RDW (11.5-14.5) % Plt Count (150-375) k/mm3 MPV (7.4-10.4) fl Immature Gran % (Auto) (0-0.5) % Neut % (Auto) (45.5-73.1) % Lymph % (Auto) (18.3-44.2) % Graham % (Auto) (2.6-8.5) % Eos % (Auto) (0-4.4) % Baso % (Auto) (0.2-1.2) % Lymph # (Auto) (0.9-3.2) K/mm3 Graham # (Auto) (0.1-0.6) K/mm3 Eos # (Auto) (0-0.3) K/mm3 Baso # (Auto) (0.0-0.1) K/mm3 Abs Immat Gran (auto) (0.00-0.031) K/mm3 Absolute Neuts (auto) (1.3-6.7) K/mm3 Absolute Nucleated RBC (0.0-0.012) K/mm3 Nucleated RBC % (0.0-0.2) % Sodium (137-145) mmol/L Potassium (3.4-5.0) mmol/L Chloride (98-107) mmol/L Carbon Dioxide (22-30) mmol/L Anion Gap (4-12) mmol/L BUN (7-17) mg/dL Creatinine (0.7-1.0) mg/dL Estim Creat Clear Calc ml/min Estimated GFR (59 - ) Glucose (65-110) mg/dL Lactic Acid (0.7-2.0) mmol/L Calcium (8.4-10.2) mg/dL Magnesium (1.6-2.3) mg/dL Total Bilirubin (0.2-1.3) mg/dL AST (14-36) U/L ALT (6-35) U/L Alkaline Phosphatase (38-126) U/L Troponin I < 0.012 (0.000-0.034) ng/mL NT-Pro-B Natriuret Pep (19.9-100) pg/mL Total Protein (6.3-8.2) g/dL Albumin (3.5-5.1) g/dL Lipase (23-300) U/L Urine Color (Yellow) Urine Appearance (Clear) Urine pH (5.0-9.0) Ur Specific Schlater (1.001-1.035) Urine Protein (Negative) mg/dL Urine Glucose (UA) (Negative) mg/dL Urine Ketones (Negative) mg/dL Ur Blood (Man) (Negative) Urine Nitrate (Negative) Urine Bilirubin (Negative) Urine Urobilinogen (<2.0) mg/dL Leukocyte Esterase Rfl (Negative) TAL/UL Urine RBC (0-2) /hpf Urine WBC (0-3) /hpf Ur Squamous Epith Cells (Few) /hpf Urine Bacteria /hpf Urine Casts POC Urine HCG, Qual (Negative) Influenza A (RT-PCR) (Negative) Influenza B (RT-PCR) (Negative) RSV (RT-PCR) (Negative) SARS-CoV-2 RNA (RT-PCR) (Negative) <Jason Wesley MD - Last Filed: 08/10/25 13:50> Imaging Data Radiologist's impression: ITS Impressions Chest/Abdomen/Pelvis CTA 08/10/25 07:44 IMPRESSION: 1. No pulmonary embolus. 2. Uterine fibroids. <Slava Sibley MD - Last Filed: 08/10/25 06:42> ITS Impressions Chest/Abdomen/Pelvis CTA 08/10/25 07:44 IMPRESSION: 1. No pulmonary embolus. 2. Uterine fibroids. <Jason Wesley MD - Last Filed: 08/10/25 13:50> Discharge Plan Discharge Clinical Impression: Chest pain, Shortness of breath <Slava Sibley MD - Last Filed: 08/10/25 06:42> Patient Disposition: Home <Slava Sibley MD - Last Filed: 08/10/25 06:42> Condition: Stable <Slava Sibley MD - Last Filed: 08/10/25 06:42> Instructions: Antibiotic Form, Gastritis (ED), Diet for Stomach Ulcers and Gastritis (ED) <Slava Sibley MD - Last Filed: 08/10/25 06:42> Additional Instructions: Have close follow-up with your primary care physician for additional outpatient cardiac testing. Have close follow-up with your GI physician. Avoid ibuprofen and avoid alcohol. Follow a bland diet. Take omeprazole as directed for the next 14 days to decrease your stomach acid. If you have any worsening symptoms then please call or return to the emergency department. <Slava Sibley MD - Last Filed: 08/10/25 06:42> Patient Language: R[place]an <Slava Sibley MD - Last Filed: 08/10/25 06:42> Prescriptions: New omeprazole 20 mg capsule,delayed release(DR/EC) 20 mg PO DAILY 14 Days Qty: 14 0RF <Slava Sibley MD - Last Filed: 08/10/25 06:42> Follow-up/Referrals: Al Valdes MD [Primary Care Provider, Family Practice] Chris Patterson MD [Physician, Gastroenterology] <Slava Sibley MD - Last Filed: 08/10/25 06:42>
--- NOTE | 2025-08-10 07:05 | ECG_ITS ---
Test Date: 2025-08-10 07:26:45 Measurements Intervals [place] Rate: 83 P: 76 [place]: 132 QRS: 48 QRSD: 85 T: 55 QT: 330 QTc: 389 Interpretive Statements SINUS RHYTHM BASELINE ARTIFACT- I, II, AVR, AVL, V1 NORMAL ECG Compared to ECG 08/10/2025 04:08:16 NO SIGNIFICANT CHANGE Electronically Signed On 08-10-2025 08:19:39 AUTOMOTIVE REPAIR TECHNICIAN by Hector Hernández D.O.
[2025-08-10 07:13] LABS: Troponin I < 0.012 ng/mL (0.000-0.034)
[2025-08-10 07:30] VITALS: BP 106/69; PULSE 85; RESP 17; O2SAT 99
[2025-08-10 08:08] VITALS: BP 117/73; PULSE 80; RESP 17; O2SAT 98
== END 2025-08-10 08:17 | disposition home or self-care (01) ==
PROVIDERS: Emergency Provider Emergency Medicine; PCP Emergency Medicine
DX: R07.9 Chest pain, unspecified (principal); R06.02 Shortness of breath; Z20.822 Contact with and (suspected) exposure to COVID-19; D25.9 Leiomyoma of uterus, unspecified
CPT/HCPCS: 36415; 71275; 74177; 80053; 81001; 81025; 83605; 83690; 83735; 83880; 84484; 85025; 87637; 93005; 99284; Q9967